=== PATIENT | female | born 1950 | race Caucasian/White ===

== ENCOUNTER 2020-02-15 01:48 | Emergency (ER) | payer MEDICARE, OTHER, SELFPAY ==
[2020-02-15 02:33] VITALS: BP 160/91; PULSE 94; RESP 17; TEMP 36.7; O2SAT 94; BMI 25.0
[2020-02-15 02:55] VITALS: RESP 16
--- NOTE | 2020-02-15 02:55 | CTR_ITS ---
PROCEDURE INFORMATION: Exam: CT Head Without Contrast Exam date and time: 02/15/2020 3:11 AM Age: 69 years old Clinical indication: Pain; Visual disturbance; Headache not specified; Additional info: Headache, visual changes TECHNIQUE: Imaging protocol: Computed tomography of the head without contrast. Radiation optimization: All CT scans at this facility use at least one of these dose optimization techniques: automated exposure control; mA and/or kV adjustment per patient size (includes targeted exams where dose is matched to clinical indication); or iterative reconstruction. COMPARISON: No relevant prior studies available. RADIATION DOSE METRICS: Total DLP (mGy-cm): 853.92 FINDINGS: Brain: No intracranial hemorrhage or edema. Mild brain atrophy. Ventricles: No hydrocephalus. Bones/joints: No acute fracture. Sinuses: Unremarkable. No acute sinusitis. Mastoid air cells: No significant mastoid effusion. Vasculature: Vascular calcifications. Soft tissues: Unremarkable. CT/CT head wo con* [id number] IMPRESSION: No acute intracranial abnormality. Radiation Dose CTDIVOL = (mGy): DLP = 853.92 (mGy-cm)
--- NOTE | 2020-02-15 03:06 | ED_ITS ---
HPI - Headache General: Chief Complaint: Headache Stated Complaint: eye problems Time Seen by Provider: 02/15/20 02:47 Source: patient Mode of arrival: ambulatory Limitations: no limitations History of Present Illness: HPI Narrative: Zamzam is a very nice 69-year-old female who comes in complaining of blurry vision in her left visual arias and headache. Patient states that she believes the symptoms started sometime at 1 AM and have gradually improved until she is seen here but as her vision has improved she has developed a headache. She states that she has nauseousness with this and her headache is behind both of her eyes. She states her vision is only bad when she looks to her left visual arias and is present when she closes one eye at a time but notices it is worst from her left eye. She describes the symptoms as even like wavy lines in her visual field. The patient denies any facial numbness or weakness, arm or extremity numbness or weakness. She denies any difficulty with swallowing or difficulty with speech. The patient has had a detached retina in the past in her right eye but got her vision back after surgery by Dr. Isaacs. She states that her symptoms tonight do not feel like a detached retina. Associated symptoms: Deny chest pain, confusion, diaphoresis, fever(s), lightheadedness, malaise, nausea, pre-syncope, rash, syncope or vomiting Review of Systems Const: Denies: fever(s), chills, body aches, fatigue, malaise or diaphoresis Eyes: Reports: blurry vision; Denies: change in vision, photophobia, eye discomfort, eye discharge or eye redness ENMT: Denies: throat pain, odynophagia, hoarseness, swelling of lips/tongue, ear or mastoid pain, ear discharge, change in hearing or nasal discharge Card: Denies: chest pain, palpitations, irregular heart rhythm, edema, lightheadedness, syncope, pre-syncope, dyspnea on exertion or orthopnea Resp: Denies: dyspnea, productive cough, non-productive cough, wheezing, hemoptysis or chest congestion GI: Denies: abdominal pain, nausea, vomiting, hematemesis, coffee ground emesis, heartburn, diarrhea, constipation, GI cramping, hematochezia or melena : Denies: flank pain, dysuria, urinary frequency, urinary urgency or hematuria Musc: Denies: neck pain, back pain, extremity pain, extremity swelling, joint pain, joint swelling, joint redness, joint warmth or joint stiffness Skin/Breast: Denies: rash, pruritus, erythema or skin tenderness Neuro: Reports: headache(s); Denies: numbness in extremities, weakness in extremities, sensory changes, lack of coordination, difficulty walking, dizziness, vertigo, confusion, Slurred speech present or seizure-like activity [place]/Lymph: Denies: easy bruising, easy bleeding, petechiae, purpura or enlarged lymph nodes All/Imm: Denies: urticaria, throat swelling, tongue swelling, facial swelling or acute wheezing PFSH ED PFSH: Medical History GERD (gastroesophageal reflux disease) Hyperlipidemia Normal colonoscopy Retinal detachment Rheumatoid arthritis Surgical History H/O eye surgery H/O: hysterectomy History of section, classical History of esophagogastroduodenoscopy (EGD) History of squamous cell carcinoma excision Physical Exam Const: COMMON NORMALS: no acute distress, patient oriented x3, no limitations, healthy appearing and well nourished GENERAL APPEARANCE: cooperative, well kempt and well developed HENMT: COMMON NORMALS: normocephalic, atraumatic, external ears normal, EAC's normal and Normal external nose present HEAD & SCALP: normal to inspection, normocephalic and atraumatic FACE & SINUS: normal facial exam and face symmetric NOSE: Normal external nose present and Normal nares present EXTERNAL EAR: Yes external ears normal EXTERNAL AUDITORY CANAL: EAC's normal MOUTH: Normal oral and palatal mucosa present, lip normal and tongue normal Eye: COMMON NORMALS: Equal, round and reactive pupils present, conjunctivae normal, no scleral icterus, no papilledema and fundi normal bilaterally GENERAL EYE: appearance normal, both eyes and all related structures and normal light reflex VISUAL ARIAS: No peripheral vision loss, No central vision loss and No left visual field cut ALIGNMENT: Yes alignment normal PERIORBITAL: periorbital findings normal EYELID: eyelids normal CONJUNCTIVA: Yes conjunctivae normal SCLERA: sclerae normal PUPIL: Yes Equal, round and reactive pupils present EOM: Yes EOM abnormal DIRECT OPHTHALMOSCOPY: Yes normal light reflex, Yes no papilledema and Yes fundi normal bilaterally OTHER: Left eye pressure checked with tonometer and found to be 10. Neck/C-Spine: COMMON NORMALS: full ROM, no lymphadenopathy, supple, no meningeal signs and no JVD GENERAL: Yes normal visual inspection and Yes trachea midline Chest: COMMONS NORMALS: normal inspection of the chest and normal palpation of entire chest wall Resp: COMMON NORMALS: normal respiratory effort, No retractions, No use of accessory muscles and clear to auscultation bilaterally EFFORT & INSPECTION: Yes able to speak in complete sentences and Yes symmetric chest movement AUSCULTATION: clear to auscultation bilaterally, no crackles, no rales, no rhonchi and no wheezes Cardio: COMMON NORMALS: no JVD, regular rate, regular rhythm, S1 normal heart sound present and S2 normal heart sound present RATE: regular rate RHYTHM: regular rhythm HEART SOUNDS: S1 normal heart sound present, S2 normal heart sound present, no click, no gallops, no murmurs, no rubs and abnormal split S2 GI: COMMON NORMALS: Soft to palpation and No hepatosplenomegaly present PALPATION: Yes Soft to palpation, No Tenderness to palpation present (GI), No Guarding due to palpation present (GI), No Rigid due to palpation, Yes No hepatosplenomegaly present, No Hernia present, No Palpable mass present and No Pulsatile mass present : COMMON NORMALS: Yes no CVA tenderness BLADDER/KIDNEY EXAM: Yes no CVA tenderness EXTERNAL FEMALE EXAM: No Hernia present Back/Pelvis: COMMON NORMALS: no CVA tenderness, thoracic and lumbar spine normal to inspection, no thoracic nor lumbar tenderness and thoraco-lumbar ROM normal Extremity: COMMON NORMALS: normal to inspection, full ROM, capillary refill normal, no joint enlargement, no clubbing, cyanosis or edema and no calf tenderness Neuro: COMMON NORMALS: patient oriented x3, CN's II-XII intact bilaterally, moves all extremities, no focal motor deficits and no sensory deficits noted MENINGEAL SIGNS: Yes no meningeal signs SPEECH: speech normal Psych: COMMON NORMALS: mental status grossly normal, Normal thought process present, cooperative, normal affect, speech normal and activity/motor behavior normal APPEARANCE: Yes well kempt SPEECH: Yes normal speech THOUGHT PROCESS: Normal thought process present Skin: COMMON NORMALS: no rashes or lesions noted, turgor normal, no jaundice, no petechiae and no mottling GENERAL SKIN EXAM: no rashes or lesions noted and turgor normal Course Vital Signs: Vital signs: Vital Signs Temperature 98.1 F 02/15/20 02:33 Pulse Rate 94 02/15/20 02:33 Respiratory Rate 16 02/15/20 02:55 Blood Pressure 160/91 02/15/20 02:33 Pulse Oximetry 94 02/15/20 02:33 MDM - Headache MDM Narrative: Medical decision making narrative: Zamzam is a nice 69-year-old female who comes in complaining of headache and visual disturbance. The visual disturbance happened first and was binocular. She noticed that her left eye had worse symptoms that her right eye though. The patient symptoms of visual disturbance were improving on their own but completely resolved with Reglan and Benadryl given here. Eye exam revealed no evidence of retinal detachment and bedside ultrasound revealed no evidence of retinal detachment. Patient's eye pressures were normal at 9. Gradually her headache got better and her symptoms completely resolved. I see no evidence of temporal arteriitis or serious infectious syndrome. Lab Data: Labs: Lab Results 02/15/20 02/15/20 02/15/20 Range/Units 03:53 03:53 03:53 WBC 7.1 (4.0-10.0) 10^3/ uL RBC 4.47 (4.1-5.3) 10^6/u L Hgb 13.6 (11.5-15.3) g/dL Hct 41.6 (37.0-47.0) % MCV 93.1 (81-99) fL MCH 30.4 (28.0-34.0) pg MCHC 32.7 (30.0-36.0) g/dL RDW 13.1 (12.1-15.1) % Plt Count 257 (130-400) 10^3/c mm MPV 9.5 (7.4-10.4) fL Neut % (Auto) 64.1 % Lymph % (Auto) 26.5 % [place] % (Auto) 7.1 % Eos % (Auto) 1.4 % Baso % (Auto) 0.6 % Neut # (Auto) 4.52 (1.8-7.7) 10^3/u L Lymph # (Auto) 1.9 (0.8-4.8) 10^3/u L [place] # (Auto) 0.5 (0.2-0.9) 10^3/u L Eos # (Auto) 0.1 (0.0-0.8) 10^3/u L Baso # (Auto) 0.0 (0.0-0.1) 10^3/u L Nucleated RBC % (a uto) 0 % Nucleated RBCs # 0.0 /100WBC ESR 20 H (0-15) mm/hr PT (12.1-14.9) SECO NDS INR (0.8-1.2) Sodium 142 (136-145) mmol/L Potassium 3.8 (3.5-5.1) mmol/L Chloride 104 (98-107) mmol/L Carbon Dioxide 28 (22-29) mmol/L Anion Gap 13.8 (5-19) BUN 14 (8-23) mg/dL Creatinine 0.6 (0.5-0.9) mg/dL GFR Calculation 99.7 (90-130) mL/min Glucose 178 H (65-115) mg/dL Calculated Osmolal ity 295 (285-295) mOsm/k g Calcium 9.0 (8.5-10.5) mg/dL Total Bilirubin 0.3 (0.15-1.2) mg/dL AST 20 (0-32) U/L ALT 17 (0-33) U/L Alkaline Phosphata se 115 H (35-105) IU/L C-Reactive Protein 4.9 (0.0-4.9) mg/L Total Protein 7.5 (6.6-8.7) g/dL Albumin 4.5 (3.5-5.2) g/dL Globulin 3.0 (1.3-4.6) g/dL 02/15/20 Range/Units 03:53 WBC (4.0-10.0) 10^3/ uL RBC (4.1-5.3) 10^6/u L Hgb (11.5-15.3) g/dL Hct (37.0-47.0) % MCV (81-99) fL MCH (28.0-34.0) pg MCHC (30.0-36.0) g/dL RDW (12.1-15.1) % Plt Count (130-400) 10^3/c mm MPV (7.4-10.4) fL Neut % (Auto) % Lymph % (Auto) % [place] % (Auto) % Eos % (Auto) % Baso % (Auto) % Neut # (Auto) (1.8-7.7) 10^3/u L Lymph # (Auto) (0.8-4.8) 10^3/u L [place] # (Auto) (0.2-0.9) 10^3/u L Eos # (Auto) (0.0-0.8) 10^3/u L Baso # (Auto) (0.0-0.1) 10^3/u L Nucleated RBC % (a uto) % Nucleated RBCs # /100WBC ESR (0-15) mm/hr PT 11.80 L (12.1-14.9) SECO NDS INR 0.84 (0.8-1.2) Sodium (136-145) mmol/L Potassium (3.5-5.1) mmol/L Chloride (98-107) mmol/L Carbon Dioxide (22-29) mmol/L Anion Gap (5-19) BUN (8-23) mg/dL Creatinine (0.5-0.9) mg/dL GFR Calculation (90-130) mL/min Glucose (65-115) mg/dL Calculated Osmolal ity (285-295) mOsm/k g Calcium (8.5-10.5) mg/dL Total Bilirubin (0.15-1.2) mg/dL AST (0-32) U/L ALT (0-33) U/L Alkaline Phosphata se (35-105) IU/L C-Reactive Protein (0.0-4.9) mg/L Total Protein (6.6-8.7) g/dL Albumin (3.5-5.2) g/dL Globulin (1.3-4.6) g/dL Imaging Data^: US Ocular Left Eye: Attestation: I personally reviewed and interpreted this imaging study as follows: My impression: Bedside ultrasound reveals no evidence of retinal detachment. Lens appears in place. CT Head: Radiologist's impression: [address] [address] [address] Scan Report Signed Patient: Zamzam Amezquita Unit #: [id number] : 1950 Age/Sex: 69 / F ADM Date: 02/15/20 Loc: ER Room/Bed: Attending Dr: Ordering Provider/Ordering MD: Evelia Hopkins DO Date of Service: 02/15/20 Procedure(s): CT head wo con* [id number] Accession Number(s): [id number] Report Number: [id number] PROCEDURE INFORMATION: Exam: CT Head Without Contrast Exam date and time: 02/15/2020 3:11 AM Age: 69 years old Clinical indication: Pain; Visual disturbance; Headache not specified; Additional info: Headache, visual changes TECHNIQUE: Imaging protocol: Computed tomography of the head without contrast. Radiation optimization: All CT scans at this facility use at least one of these dose optimization techniques: automated exposure control; mA and/or kV adjustment per patient size (includes targeted exams where dose is matched to clinical indication); or iterative reconstruction. COMPARISON: No relevant prior studies available. RADIATION DOSE METRICS: Total DLP (mGy-cm): 853.92 FINDINGS: Brain: No intracranial hemorrhage or edema. Mild brain atrophy. Ventricles: No hydrocephalus. Bones/joints: No acute fracture. Sinuses: Unremarkable. No acute sinusitis. Mastoid air cells: No significant mastoid effusion. Vasculature: Vascular calcifications. Soft tissues: Unremarkable. CT/CT head wo con* [id number] IMPRESSION: No acute intracranial abnormality. Radiation Dose CTDIVOL = (mGy): DLP = 853.92 (mGy-cm) Dictated By: Buck Beltre MD Signed By: Buck Beltre MD Signed Date/Time: 02/15/20405 DD/ 4 Discharge Plan Discharge Patient Disposition: Home Clinical Impression: Headache Qualifiers: Headache type: unspecified Headache chronicity pattern: acute headache Intractability: not intractable Qualified Code(s): R51 - Headache Migraine Qualifiers: Migraine type: ophthalmoplegic Intractability: not intractable Qualified Code(s): G43.B0 - Ophthalmoplegic migraine, not intractable Condition: Stable Discharge Orders: Discharge Order (Routine); Ordered 02/15/20 Ordered By: Evelia Hopkins Referrals: Shivam Isaacs MD [Physician] - 1-3 days Marcial Meade DO [Primary Care Provider] - 1-3 days Discharge Diet: Advance as tolerated Patient Instructions: Headache - Migraine (Adult), Acute Headache (ED) Activity Restrictions/Additional Instructions: Please return to the ER immediately for any of the signs or symptoms listed on your discharge instruction sheets, worsening/changing of your symptoms, you are not getting better as quickly as expected, or for ANY other cause or concerns. Be certain to follow-up with Dr. Isaacs and your primary doctor for further evaluation and care. If your headache returns or your visual symptoms return at all please return to the hospital immediately for recheck. Coding Level of Care Code ED Drop Pit Worker for Chg Fwd Exam Comprehensive
[2020-02-15] MEDS: diphenhydrAMINE 50 mg/mL SDV 1mL 12.5 MG IVP (03:59)
[2020-02-15] MEDS: metoclopramide 5 mg/mL SDV 2 mL 10 MG IV (04:00)
[2020-02-15 04:02] LABS: Basophils % 0.6 %; Eosinophils # 0.1 10^3/uL (0.0-0.8); Eosinophils % 1.4 %; Hematocrit 41.6 % (37.0-47.0); Hemoglobin 13.6 g/dL (11.5-15.3); Lymphocytes # 1.9 10^3/uL (0.8-4.8); Lymphocytes % 26.5 %; Mean Corpuscular HGB Conc 32.7 g/dL (30.0-36.0); Mean Corpuscular Hemoglobin 30.4 pg (28.0-34.0); Mean Corpuscular Volume 93.1 fL (81-99); Mean Platelet Volume 9.5 fL (7.4-10.4); Monocytes # 0.5 10^3/uL (0.2-0.9); Monocytes % 7.1 %; Neutrophils # 4.52 10^3/uL (1.8-7.7); Neutrophils % 64.1 %; Nucleated Red Blood Cells % 0 %; Platelet Count 257 10^3/cmm (130-400); Red Blood Count 4.47 10^6/uL (4.1-5.3); Red Cell Distribution Width 13.1 % (12.1-15.1); White Blood Count 7.1 10^3/uL (4.0-10.0)
[2020-02-15 04:22] LABS: INR 0.84 (0.8-1.2)
[2020-02-15 04:24] LABS: Alanine Aminotransferase 17 U/L (0-33); Albumin Level 4.5 g/dL (3.5-5.2); Alkaline Phosphatase 115 IU/L (35-105); Anion Gap 13.8 (5-19); Aspartate Amino Transferase 20 U/L (0-32); Blood Urea Nitrogen 14 mg/dL (8-23); C Reactive Protein 4.9 mg/L (0.0-4.9); Carbon Dioxide 28 mmol/L (22-29); Chloride 104 mmol/L (98-107); Glomerular Filtration Rate 99.7 mL/min (90-130); Glucose 178 mg/dL (65-115); Osmolality Calculated 295 mOsm/kg (285-295); Potassium 3.8 mmol/L (3.5-5.1); Sodium 142 mmol/L (136-145); Total Bilirubin 0.3 mg/dL (0.15-1.2); Total Protein 7.5 g/dL (6.6-8.7)
[2020-02-15] MEDS: acetaminophen 500 mg Tablet 1000 MG PO (05:02)
[2020-02-15 05:31] LABS: Erythrocyte Sedimentation Rate 20 mm/hr (0-15)
[2020-02-15 05:47] VITALS: BP 118/71; PULSE 67; RESP 16; O2SAT 96
== END 2020-02-15 05:59 | disposition home or self-care (01) ==
PROVIDERS: Emergency Provider Emergency Medicine; PCP Family Medicine
DX: G43.B0 Ophthalmoplegic migraine, not intractable (principal); E78.5 Hyperlipidemia, unspecified
CPT/HCPCS: 12345; 70450; 80053; 85025; 85610; 85651; 86140; 96374; 96375; 99282; 99283; J1200; J2765

== ENCOUNTER 2022-10-16 18:54 | Emergency (ER) | payer MEDICARE, OTHER, SELFPAY ==
[2022-10-16 19:00] VITALS: BP 207/116; PULSE 85; RESP 17; TEMP 36.6; O2SAT 97; BMI 26.2
--- NOTE | 2022-10-16 19:05 | ECG_ITS ---
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 Measurements Intervals Pierz Rate: 84 P: 100 MT: 151 QRS: -5 QRSD: 84 T: 91 QT: 372 QTc: 441 Interpretive Statements SINUS RHYTHM WITH OCCASIONAL VENTRICULAR PREMATURE COMPLEXES POSSIBLE LEFT ATRIAL ENLARGEMENT [-0.1mV P-WAVE IN V1/V2] POSSIBLE ANTERIOR MYOCARDIAL INFARCTION , PROBABLY OLD [30 ms Q WAVE IN V3/V4, OR R < 0.2 mV IN V4] No previous ECG available for comparison Electronically Signed On 10-16-2022 21:26:38 CDT by Karthik Hunter M.D. [email or web address]
--- NOTE | 2022-10-16 19:15 | XRR_ITS ---
PROCEDURE INFORMATION: Exam: XR Chest Exam date and time: 10/16/2022 7:32 PM Age: 72 years old Clinical indication: Pain; Chest pressure; Additional info: Chests pain TECHNIQUE: Imaging protocol: Radiologic exam of the chest. Views: 2 views. COMPARISON: No relevant prior studies available. FINDINGS: Lungs: There is minimal scarring and/or atelectasis at the left lung base. Pleural spaces: Unremarkable. No pleural effusion. No pneumothorax. Heart/Mediastinum: Unremarkable. No cardiomegaly. Bones/joints: Unremarkable. XR/XR chest 2V* [id number] IMPRESSION: No evidence for acute cardiopulmonary disease.
--- NOTE | 2022-10-16 19:18 | ED_ITS ---
HPI - Back Pain/Injury General: Chief Complaint: Back Pain/Injury Stated Complaint: Back Pain\Rt Side Breathe Hurts Time Seen by Provider: 10/16/22 19:08 History of Present Illness: Presents ER complaining of midthoracic back pain which is sharp and stabbing when she takes a big deep breath. Patient reports tenderness on palpation. Patient says this started this morning while she is getting ready for christian. Patient denies any fevers chills cough cold sore throat etc. patient does have RA with normal body aches and pains but she says this is different. MD elicited complaint: back pain Pertinent past history: other (RA) Onset (ago): hour(s) (Back 10 hours ago) Timing: other (Worse when taking big deep breaths) Severity: moderate Similar Symptoms Previously: No Quality: sharp and stabbing Location: thoracic spine (Not on spine but located laterally of mid thoracic spine) Radiation: none Exacerbating factors: deep breaths Relieving factors: none Associated symptoms: Reports no associated symptoms; Deny abdominal pain, chills, dysuria, fever(s), nausea or vomiting Work related injury: No Review of Systems General: Reports: 10 or more systems reviewed and unremarkable except in HPI and below Const: Denies: fever(s) or chills Eyes: Denies: change in vision or blurry vision ENMT: Denies: throat pain or odynophagia Card: Denies: palpitations, irregular heart rhythm or edema Resp: Reports: pain on inspiration; Denies: dyspnea, productive cough, non-productive cough, wheezing, stridor or hemoptysis GI: Denies: abdominal pain, nausea, vomiting or diarrhea : Denies: flank pain or dysuria Musc: Denies: neck pain or back pain Skin/Breast: Denies: rash or pruritus Neuro: Denies: headache(s), numbness in extremities or weakness in extremities PFSH ED PFSH: Medical History (Updated 10/16/22 @ 21:01 by Ramon Pro DO) GERD (gastroesophageal reflux disease) Hyperlipidemia Normal colonoscopy Retinal detachment Rheumatoid arthritis Surgical History H/O eye surgery H/O: hysterectomy History of section, classical History of esophagogastroduodenoscopy (EGD) History of squamous cell carcinoma excision Physical Exam Const: COMMON NORMALS: no acute distress, average body habitus, patient oriented x3, no limitations, healthy appearing, alert and well nourished HENMT: COMMON NORMALS: normocephalic, atraumatic, hearing grossly normal bilaterally, external ears normal, Normal external nose present and moist oral mucous membranes HEAD & SCALP: normocephalic and atraumatic NOSE: Normal external nose present EXTERNAL EAR: Yes external ears normal Neck/C-Spine: COMMON NORMALS: full ROM, no lymphadenopathy, supple, no meningeal signs, no JVD and Thyroid normal THYROID: Thyroid normal Chest: COMMONS NORMALS: normal inspection of the chest OTHER: Tenderness with palpation over right posterior chest wall near thoracic paraspinal musculature Resp: COMMON NORMALS: normal respiratory effort, No retractions, No use of accessory muscles and clear to auscultation bilaterally AUSCULTATION: clear to auscultation bilaterally Cardio: COMMON NORMALS: no JVD GI: COMMON NORMALS: Normal to inspection, nondistended, normoactive bowel sounds present, Soft to palpation, non-tender, No hepatosplenomegaly present and no masses PALPATION: Yes Soft to palpation and Yes No hepatosplenomegaly pres ent Back/Pelvis: OTHER: Nontender to palpation over spinous processes of cervical and thoracic spine Neuro: COMMON NORMALS: patient oriented x3 SENSORIUM/ORIENTATION: Yes alert MENINGEAL SIGNS: Yes no meningeal signs Course Vital Signs: Vital signs: Vital Signs Temperature 97.8 F 10/16/22 19:00 Pulse Rate 81 10/16/22 19:25 Respiratory Rate 16 10/16/22 19:25 Blood Pressure 145/90 10/16/22 19:25 Pulse Oximetry 97 10/16/22 19:25 Oxygen Delivery Me thod Room Air 10/16/22 19:25 MDM - Back Pain/Injury Medical Decision Making Presents to the ER with complaints of right posterior thoracic pain worse when she takes a big deep breath stabbing in nature. Patient says this started when she was getting ready for christian. She is in no acute distress during the exam. This pain is reproducible with palpation as well as deep breathing. X-rays and lab work was performed. Lab work was essentially benign and chest x-ray showed no acute findings. These were discussed with the patient. Patient will be given anti-inflammatory and muscle relaxer and discharged home to follow-up with family physician within 1 week as needed. Differential Diagnosis Likely thoracic back pain; Unlikely lumbar radiculopathy, sciatica or strain of lumbar region Medical Records I reviewed the patient's medical records. Labs I reviewed the patient's lab results. 10/16/22 19:28 10/16/22: Radiology Impressions Chest X-Ray 10/16/22: IMPRESSION: No evidence for acute cardiopulmonary disease. Laboratory Results WBC 7.2 10^3/uL (4.0-10.0) 10/16/22 19: RBC 4.76 10^6/uL (4.1-5.3) 10/16/22: Hgb 14.5 g/dL (11.5-15.3) 10/16/22: Hct 43.5 % (37.0-47.0) 10/16/22: MCV 91.4 fl (81-99) 10/16/22: MCH 30.5 pg (28.0-34.0) 10/16/22: MCHC 33.3 g/dL (30.0-36.0) 10/16/22: RDW 13.8 % (12.1-15.1) 10/16/22: Plt Count 246 10^3/cmm (130-400) 10/16/22: MPV 9.5 fL (7.4-10.4) 10/16/22: Neut % (Auto) 43.8 % 10/16/22: Lymph % (Auto) 45.8 % 10/16/22: [place] % (Auto) 7.5 % 10/16/22: Eos % (Auto) 1.9 % 10/16/22: Baso % (Auto) 0.6 % 10/16/22: Neut # (Auto) 3.15 10^3/uL (1.8-7.7) 10/16/22: Lymph # (Auto) 3.3 10^3/uL (0.8-4.8) 10/16/22: [place] # (Auto) 0.5 10^3/uL (0.2-0.9) 10/16/22 19:28 Eos # (Auto) 0.1 10^3/uL (0.0-0.8) 10/16/22 19:28 Baso # (Auto) 0.0 10^3/uL (0.0-0.1) 10/16/22 19:28 Nucleated RBC % (auto) 0 % 10/16/22 19: Nucleated RBCs # 0.0 /100WBC 10/16/22 19:28 Sodium 134 mmol/L (136-145) L 10/16/22 19:28 Potassium 3.6 mmol/L (3.5-5.1) 10/16/22 19:28 Chloride 98 mmol/L (98-107) 10/16/22 19:28 Carbon Dioxide 26 mmol/L (22-29) 10/16/22 19:28 Anion Gap 13.6 (5-19) 10/16/22 19:28 BUN 11 mg/dL (8-23) 10/16/22 19:28 Creatinine 0.6 mg/dL (0.5-0.9) 10/16/22 19:28 GFR Calculation 98.8 mL/min (90-130) 10/16/22 19:28 Glucose 146 mg/dL (65-115) H 10/16/22 19:28 Calculated Osmolality 280 mOsm/kg (285-295) L 10/16/22 19:28 Calcium 8.9 mg/dL (8.5-10.5) 10/16/22 19:28 Total Bilirubin 0.3 mg/dL (0.15-1.2) 10/16/22 19:28 AST 17 U/L (0-32) 10/16/22 19:28 ALT 15 U/L (0-33) 10/16/22 19:28 Alkaline Phosphatase 117 U/L (35-105) H 10/16/22 19:28 C-Reactive Protein 3.0 mg/L (0.0-4.9) 10/16/22 19:28 Total Protein 7.2 g/dL (6.6-8.7) 10/16/22 19:28 Albumin 4.6 g/dL (3.5-5.2) 10/16/22 19:28 Globulin 2.6 g/dL (1.3-4.6) 10/16/22 19:28 EKG Data EKG 1: I personally reviewed and interpreted this EKG as follows: EKG interpretation date: 10/16/22 EKG interpretation time: 19:05 Prior EKG tracings: not available for review Interpretation: EKG showed normal sinus rhythm with occasional ventricular premature complex, ventricular rate 84 bpm, LA interval 151, QRS duration 84, QTc of 413, possible anterior TX, probably old, Q waves in V3 and V4 Discharge Plan Discharge Patient Disposition: Home Clinical Impression: Thoracic back pain Condition: Stable Prescriptions: New meloxicam 15 mg tablet 15 mg PO DAILY PRN (Reason: pain) Qty: 7 0RF baclofen 5 mg tablet 5 mg PO TID PRN (Reason: pain or spasm) Qty: 10 0RF Discharge Orders: Discharge ED (Routine); Ordered 10/16/22 Ordered By: Ramon Pro Referrals: Kalyani Kraft PA [Primary Care Provider] - 1 week Patient Instructions: Back Pain (ED) Coding Level of Care Code ED Tugboat Mate for Angie Patino
[2022-10-16 19:25] VITALS: BP 145/90; PULSE 81; RESP 16; O2SAT 97
[2022-10-16 19:34] LABS: Basophils % 0.6 %; Eosinophils # 0.1 10^3/uL (0.0-0.8); Eosinophils % 1.9 %; Hematocrit 43.5 % (37.0-47.0); Hemoglobin 14.5 g/dL (11.5-15.3); Lymphocytes # 3.3 10^3/uL (0.8-4.8); Lymphocytes % 45.8 %; Mean Corpuscular HGB Conc 33.3 g/dL (30.0-36.0); Mean Corpuscular Hemoglobin 30.5 pg (28.0-34.0); Mean Corpuscular Volume 91.4 fl (81-99); Mean Platelet Volume 9.5 fL (7.4-10.4); Monocytes # 0.5 10^3/uL (0.2-0.9); Monocytes % 7.5 %; Neutrophils # 3.15 10^3/uL (1.8-7.7); Neutrophils % 43.8 %; Nucleated Red Blood Cells % 0 %; Platelet Count 246 10^3/cmm (130-400); Red Blood Count 4.76 10^6/uL (4.1-5.3); Red Cell Distribution Width 13.8 % (12.1-15.1); White Blood Count 7.2 10^3/uL (4.0-10.0)
[2022-10-16 19:54] LABS: Alanine Aminotransferase 15 U/L (0-33); Albumin Level 4.6 g/dL (3.5-5.2); Alkaline Phosphatase 117 U/L (35-105); Anion Gap 13.6 (5-19); Aspartate Amino Transferase 17 U/L (0-32); Blood Urea Nitrogen 11 mg/dL (8-23); Calcium 8.9 mg/dL (8.5-10.5); Carbon Dioxide 26 mmol/L (22-29); Chloride 98 mmol/L (98-107); Globulin 2.6 g/dL (1.3-4.6); Glomerular Filtration Rate 98.8 mL/min (90-130); Glucose 146 mg/dL (65-115); Osmolality Calculated 280 mOsm/kg (285-295); Potassium 3.6 mmol/L (3.5-5.1); Sodium 134 mmol/L (136-145); Total Bilirubin 0.3 mg/dL (0.15-1.2); Total Protein 7.2 g/dL (6.6-8.7)
[2022-10-16] MEDS: ketorolac 60 mg/2 mL INJ IM (21:34)
[2022-10-16] MEDS: tizanidine 4 mg Tablet 2 MG PO (21:34)
[2022-10-16 21:35] VITALS: BP 122/85; PULSE 72; RESP 13; O2SAT 97
== END 2022-10-16 21:34 | disposition home or self-care (01) ==
PROVIDERS: Emergency Provider Emergency Medicine; PCP Physician Assistant
DX: M54.6 Pain in thoracic spine (principal)
CPT/HCPCS: 71046; 80053; 85025; 86140; 93005; 96372; 99285; J1885

== ENCOUNTER 2022-11-07 07:15 | Outpatient (CLI) | payer MEDICARE, OTHER, SELFPAY ==
--- NOTE | 2022-11-07 07:31 | MM_ITS ---
WS: [id number] BILATERAL SCREENING DIGITAL TOMOSYNTHESIS MAMMOGRAM WITH CAD HISTORY: SCREENING COMPARISON: None available. Bilateral CC and MLO views with tomosynthesis and synthetic mammography submitted. Computer aided det ection analyzed. Limited positioning. Very little pectoralis muscle included on the lateral projection. Breast composition: There are scattered areas of fibroglandular density. No suspicious masses, microc alcifications or architectural distortion. Benign calcifications 12:00 LEFT breast. MM/[place] [id number] IMPRESSION: BI-RADS: 2-Benign FOLLOW UP: 1 Year Follow-up
== END 2022-11-07 07:16 | disposition home or self-care (01) ==
LOC: RAD 07:19
PROVIDERS: PCP Physician Assistant; Visit Provider Physician Assistant
DX: Z12.31 Encounter for screening mammogram for malignant neoplasm of breast (principal)
CPT/HCPCS: 77063; 77067

== ENCOUNTER → 2023-08-11 10:52 | Outpatient (BNVA) | payer MEDICARE, OTHER, SELFPAY | PROVIDERS: PCP Physician Assistant; Visit Provider Family Medicine | DX: Z13.6 Encounter for screening for cardiovascular disorders (principal); E78.5 Hyperlipidemia, unspecified; E03.9 Hypothyroidism, unspecified; R06.09 Other forms of dyspnea; Z76.89 Persons encountering health services in other specified circumstances; Z79.899 Other long term (current) drug therapy | CPT/HCPCS: 80053; 80061; 83880; 84439; 84443 ==

== ENCOUNTER 2023-08-16 13:38 | Outpatient (CLI) | payer MEDICARE, OTHER, SELFPAY ==
--- NOTE | 2023-08-16 14:00 | USCV_ITS ---
Zamzam Amezquita Age: 73 Gender: F : 1950 Exam Date: 08/16/2023 13:47 Ordering Phys: Sussy Chamberlain DO Technologist: CT Exam Location: [facility] – [place] Indication: SOB BP: / HR: Rhythm: Sinus Technical Quality: Adequate MEASUREMENTS (Male / Female) Normal Values 2D ECHO LVOT Diameter 2.0 cm LV Ejection Fraction MOD 2C 66.7 % Aorta at Sinotubular Diameter 2.5 cm IVC Diameter 1.4 cm M-MODE LA Ao Ratio MM 1.5 AV Cusp Separation MM 1.8 cm DOPPLER AV Peak Velocity 138.0 cm/s LVOT Peak Velocity 86.0 cm/s AV Area Cont Eq vti 3.0 cm squared AV Area Cont Eq pk 2.0 cm squared MV Area PHT 3.8 cm squared Mitral E to A Ratio 0.8 TV Peak Velocity 182.0 cm/s TR Peak Velocity 269.0 cm/s TR Peak Gradient 28.9 mmHg Right Atrial Pressure 3.0 mmHg Pulmonary Artery Systolic Pressu 31.9 mmHg PV Peak Velocity 98.0 cm/s FINDINGS Left Ventricle Left ventricle is normal in size. LV systolic function is normal with EF of 60 to 65%. No regional wall motion abnormalities are seen. Grade 1 diastolic dysfunction. Right Ventricle Normal in size and function Right Atrium Normal in size Left Atrium Normal in size Mitral Valve Structurally normal mitral valve. Trace mitral regurgitation Aortic Valve Aortic valve is thickened. No significant stenosis or regurgitation. Tricuspid Valve Mild tricuspid regurgitation. Pulmonary artery systolic pressure is normal. Pulmonic Valve Not well visualized Pericardium Normal Aorta Normal in size IVC Appears to be normal CONCLUSIONS LV systolic function is normal with EF of 60-65% Grade 1 diastolic dysfunction Trace mitral regurgitation Mild tricuspid regurgitation No comparison studies are available Karthik Hunter MD (Electronically Signed) Final Date: 26 August 2023 11:16 S
== END 2023-08-16 13:39 | disposition home or self-care (01) ==
LOC: RAD 13:40
PROVIDERS: PCP Physician Assistant; Visit Provider Family Medicine
DX: I07.1 Rheumatic tricuspid insufficiency (principal)
CPT/HCPCS: 93306

== ENCOUNTER → 2023-08-18 10:30 | Outpatient (BNVA) | payer MEDICARE, OTHER, SELFPAY | PROVIDERS: PCP Physician Assistant; Visit Provider Registered Nurse Neonatal Intensive Care | DX: J02.9 Acute pharyngitis, unspecified (principal) | CPT/HCPCS: 87880 ==

== ENCOUNTER 2023-09-01 09:39 | Outpatient (CLI) | payer MEDICARE, OTHER, SELFPAY ==
--- NOTE | 2023-09-01 09:51 | XR_ITS ---
WS: [id number] Exam: XR chest 2V* [id number] Date/Time of Exam: 09/01/2023 10:29 AM Reason For Exam: BRAUN Comparison 10/16/2022. The lungs are fully expanded. Bibasal plaque atelectasis unchanged. Normal cardiomediastinal silhouet te. Bony structures are intact. IMPRESSION: 1. No acute cardiopulmonary process.
== END 2023-09-01 09:40 | disposition home or self-care (01) ==
LOC: RAD 09:40
PROVIDERS: PCP Physician Assistant; Visit Provider Family Medicine
DX: R06.09 Other forms of dyspnea (principal)
CPT/HCPCS: 71046

== ENCOUNTER → 2023-12-14 10:54 | Outpatient (BNVA) | payer MEDICARE, OTHER, SELFPAY | PROVIDERS: PCP Family Medicine; Visit Provider Family Medicine | DX: Z13.6 Encounter for screening for cardiovascular disorders (principal); Z79.899 Other long term (current) drug therapy | CPT/HCPCS: 80053; 80061; 85025 ==

== ENCOUNTER 2024-02-23 14:28 | Outpatient (CLI) | payer MEDICARE, OTHER, SELFPAY ==
--- NOTE | 2024-02-23 14:30 | XR_ITS ---
WS: [id number] DEXA (DUAL ENERGY X-RAY ABSORPTIOMETRY) Bone mineral density was performed using a whodoyou machine. HISTORY: osteoporosis COMPARISON: None available. Lumbar spine BMD (L1-L4): 1.065 g/cm2 T score: -1.0 Z score: 0.6 Total hip BMD: Left: 0.727 g/cm2. T score: -2.2 Z score: -0.8 Right: 0.748 g/cm2. T score: -2.1 Z score: -0.6 10 year probability of a major osteoporotic fracture is 18.5%. XR/XR DEXA axial skeleton* [id number] IMPRESSION: OSTEOPENIA based upon the WHO classification for females.
== END 2024-02-23 14:29 | disposition home or self-care (01) ==
LOC: RAD 14:28
PROVIDERS: PCP Family Medicine; Visit Provider Family Medicine
DX: M81.0 Age-related osteoporosis without current pathological fracture (principal); Z13.820 Encounter for screening for osteoporosis; Z78.0 Asymptomatic menopausal state; M85.80 Other specified disorders of bone density and structure, unspecified site
CPT/HCPCS: 77080

== ENCOUNTER 2024-07-22 08:57 | Outpatient (CLI) | payer MEDICARE, OTHER, SELFPAY ==
--- NOTE | 2024-07-22 09:00 | US_ITS ---
WS: [email or web address] ULTRASOUND BILATERAL BREAST, complete HISTORY: Breast mass, Breast Cyst COMPARISON: None available. TECHNIQUE: 2-D and Doppler. RIGHT: Stable complex cystic mass at 7:00, 1 cm from the nipple measures 0.4 x 0.5 x 0.4 cm is simila r in size and appearance as compared to 01/15/2024. The remaining quadrants of the breasts are imaged with no abnormality. LEFT: All quadrants of the LEFT breast are imaged with no abnormality. US/US breast BI complete [id number] IMPRESSION: BI-RADS: 3- Probably Benign FOLLOW-UP: 6 Month Follow-up Patient will return in 6 months for diagnostic mammogram. Limited RIGHT breast ultrasound should also be performed of the complex cyst at 7:00 to demonstrate long-term stability.
== END 2024-07-22 08:58 | disposition home or self-care (01) ==
LOC: RAD 09:00
PROVIDERS: PCP Family Medicine; Visit Provider Family Medicine
DX: N63.13 Unspecified lump in the right breast, lower outer quadrant (principal)
CPT/HCPCS: 76641

== ENCOUNTER 2025-01-20 08:31 | Outpatient (CLI) | payer MEDICARE, OTHER, SELFPAY ==
--- NOTE | 2025-01-20 09:00 | MM_ITS ---
WS: [email or web address] DIAGNOSTIC BILATERAL DIGITAL BREAST TOMOSYNTHESIS MAMMOGRAPHY WITH CAD RIGHT breast ultrasound, limited HISTORY: breast mass 6 month f/u COMPARISON: 01/15/2024, 11/07/2022, ultrasound 07/22/2024 TECHNIQUE: Bilateral craniocaudad, mediolateral oblique, and mediolateral views are submitted with tomosynthesis and SM. Spot compression RIGHT CC and MLO. Computer aided detection utilized. Breast composition: There are scattered areas of fibroglandular density. Reidentified is a high density mass with calcification in the mid lateral RIGHT breast near 7:00. Mass measures 6 x 7 x 6 mm. No change since the prior mammogram of 01/15/2024. There are a few additional scattered calcifications. No new mass or increasing size of any mass. RIGHT breast ultrasound, limited. Complex cyst is 3 evaluated at 7:00, 1 cm from the nipple Reidentified is the minimally complex cyst with associated calcification at 7:00, 1 cm from the nipple. Complex cyst measures 0.5 x 0.7 x 0.5 cm without significant increase in size. MM/MM diag BI tomosynthesis [id number] IMPRESSION: BI-RADS: 3 - Probably Benign. FOLLOW UP: 6 Month Follow-up Additional 6-month ultrasound follow-up complex cyst RIGHT breast at 7:00. 2-ye ar imaging follow-up to document stability is recommended. Initial exam was fro m 01/15/2024. 6-month ultrasound follow-up recommended at this time.
--- NOTE | 2025-01-20 09:30 | US_ITS ---
WS: [email or web address] DIAGNOSTIC BILATERAL DIGITAL BREAST TOMOSYNTHESIS MAMMOGRAPHY WITH CAD RIGHT breast ultrasound, limited HISTORY: breast mass 6 month f/u COMPARISON: 01/15/2024, 11/07/2022, ultrasound 07/22/2024 TECHNIQUE: Bilateral craniocaudad, mediolateral oblique, and mediolateral views are submitted with tomosynthesis and SM. Spot compression RIGHT CC and MLO. Computer aided detection utilized. Breast composition: There are scattered areas of fibroglandular density. Reidentified is a high density mass with calcification in the mid lateral RIGHT breast near 7:00. Mass measures 6 x 7 x 6 mm. No change since the prior mammogram of 01/15/2024. There are a few additional scattered calcifications. No new mass or increasing size of any mass. RIGHT breast ultrasound, limited. Complex cyst is 3 evaluated at 7:00, 1 cm from the nipple Reidentified is the minimally complex cyst with associated calcification at 7:00, 1 cm from the nipple. Complex cyst measures 0.5 x 0.7 x 0.5 cm without significant increase in size. US/US breast RT limited* [id number] IMPRESSION: BI-RADS: 3 - Probably Benign. FOLLOW UP: 6 Month Follow-up Additional 6-month ultrasound follow-up complex cyst RIGHT breast at 7:00. 2-ye ar imaging follow-up to document stability is recommended. Initial exam was fro m 01/15/2024. 6-month ultrasound follow-up recommended at this time.
== END 2025-01-20 08:32 | disposition home or self-care (01) ==
LOC: RAD 08:32
PROVIDERS: PCP Family Medicine; Visit Provider Family Medicine
DX: N60.01 Solitary cyst of right breast (principal)
CPT/HCPCS: 76642; 77062; G0279

== ENCOUNTER 2025-03-18 10:44 | Oncology outpatient (recurring) (ONCR) | payer MEDICARE, OTHER, SELFPAY | END 2025-04-01 23:59 | disposition home or self-care (01) | PROVIDERS: PCP Family Medicine; Visit Provider Internal Medicine Medical Oncology | DX: Z45.2 Encounter for adjustment and management of vascular access device (principal); Z95.828 Presence of other vascular implants and grafts | CPT/HCPCS: 96523 ==

== ENCOUNTER 2025-05-15 11:21 | Oncology outpatient (recurring) (ONCR) | payer MEDICARE, OTHER, SELFPAY | END 2025-06-01 23:59 | disposition home or self-care (01) | PROVIDERS: PCP Family Medicine; Visit Provider Internal Medicine Medical Oncology | DX: Z45.2 Encounter for adjustment and management of vascular access device (principal); Z95.828 Presence of other vascular implants and grafts | CPT/HCPCS: 96523 ==

== ENCOUNTER 2025-06-17 10:34 | Oncology outpatient (recurring) (ONCR) | payer MEDICARE, OTHER, SELFPAY ==
[2025-06-17 10:54] LABS: Hematocrit 42.9 % (36-47); Hemoglobin 14.50 g/dL (11.27-16.99); Mean Corpuscular HGB Conc 33.8 g/dL (30-55); Mean Corpuscular Hemoglobin 30.2 pg (27-33); Mean Corpuscular Volume 89.4 fl (85-98); Nucleated Red Blood Cells % 0 %; Platelet Count 250 10^3/cmm (157-399); Red Blood Count 4.80 10^6/uL (3.85-5.65); White Blood Count 6.18 10^3/uL (3.29-11.43)
[2025-06-17 11:20] LABS: Alanine Aminotransferase 10 U/L (0-33); Albumin Level 4.6 g/dL (3.5-5.2); Alkaline Phosphatase 108 U/L (35-105); Anion Gap 13.2 (5-19); Aspartate Amino Transferase 17 U/L (0-32); Blood Urea Nitrogen 15 mg/dL (8-23); Calcium 9.1 mg/dL (8.5-10.5); Carbon Dioxide 29 mmol/L (22-29); Chloride 101 mmol/L (98-107); Cholesterol 214 mg/dL (0-200); Globulin 2.4 g/dL (1.3-4.6); Glucose 107 mg/dL (65-115); HDL Cholesterol 54 mg/dL (60-100); Osmolality Calculated 289 mOsm/kg (285-295); Potassium 4.2 mmol/L (3.5-5.1); Sodium 139 mmol/L (136-145); Total Protein 7.0 g/dL (6.6-8.7); Triglycerides 163 mg/dL (0-150)
== END 2025-07-02 23:59 | disposition home or self-care (01) ==
LOC: ONCMED 10:37
PROVIDERS: PCP Family Medicine; Visit Provider Internal Medicine Medical Oncology
DX: Z45.2 Encounter for adjustment and management of vascular access device (principal); Z95.828 Presence of other vascular implants and grafts
CPT/HCPCS: 36591; 80053; 80061; 85025